=== PATIENT | female | born 1985 | race African-American/Black ===

== ENCOUNTER 2020-10-07 15:20 | Inpatient (IN) | payer OTHER ==
[~2020-10-07] VITALS: Ht 175.3 cm; Wt 65.3 kg
[2020-10-07 16:24] LABS: Albumin 4.3 g/dL (3.4-5.0); BUN/Creatinine Ratio 14.7; Basophils # (auto) 0 10 ^3/uL (0-0.2); Basophils % (auto) 0.3 % (0.0-2.0); Calcium 8.9 mg/dL (8.5-10.1); Eosinophils # (auto) 0.1 10 ^3/uL (0-0.8); Eosinophils % (auto) 0.8 % (0.0-7.0); Hematocrit 47.4 % (36.0-46.0); Hemoglobin 16.4 g/dL (12.2-16.2); Lymphocytes # (auto) 2.9 10 ^3/uL (0.4-5.4); Mean Corpuscular Hemoglobin 29.8 pg (28.0-32.0); Mean Corpuscular Hgb Conc. 34.5 g/dL (32.0-36.0); Mean Corpuscular Volume 86.5 fL (80.0-100.0); Monocytes # (auto) 1.1 10 ^3/uL (0-1.3); Monocytes % (auto) 7.1 % (0.0-12.0); Neutrophils # (auto) 11.8 10 ^3/uL (1.6-8.6); Neutrophils % (auto) 73.8 % (37.0-80.0); Nucleated Red Blood Cells % 0.1 %; Platelet Count (auto) 327 10^3/uL (140-450); Potassium 3.2 mmol/L (3.5-5.1); Red Blood Cells 5.48 10^6/uL (4.0-5.20); Red Cell Distribution Width 13.9 % (11.8-14.3)
[2020-10-07 16:27] LABS: Bilirubin, Total 2.4 mg/dL (0.2-1.0); Total Protein 8.1 g/dL (6.4-8.2)
[2020-10-07] MEDS ORDERED: SODIUM CHLORIDE 0.9% 1,000 ML IVB ONE (16:45)
[2020-10-07 16:54] LABS: Urine Bacteria MANY /hpf (None Seen); Urine Blood 2+ /uL (Negative); Urine WBC 5 /hpf (0 - 5)
[2020-10-07] MEDS ORDERED: cefTRIAXone 1GM/50ML D5W 50 ML IV ONE (17:30)
[2020-10-07] MEDS: PROMETHAZINE HCL 25 MG/ML 1ML IV PRN ×2 (17:46→21:41)
[2020-10-07 17:54] LABS: Magnesium 2.3 mg/dL (1.6-2.6)
[2020-10-07] MEDS ORDERED: MORPHINE SULF INJ 2 MG/ML SYRINGE 1ML IV ONE (20:30)
[2020-10-07] MEDS ORDERED: POTASSIUM CHL 20MEQ/100ML 100 ML IV ONE (21:30)
[2020-10-07] MEDS ORDERED: metroNIDAZOLE 500MG/100ML 100 ML IV ONE (21:30)
[2020-10-07] MEDS ORDERED: ONDANSETRON HCL 4 MG/2 ML VIAL IV PRN (21:45)
[2020-10-07] MEDS ORDERED: MORPHINE SULFATE 4 MG/ML SYR/VIAL IV PRN (21:45)
[2020-10-07] MEDS ORDERED: SOD CHL 0.9%/ KCL 20MEQ 1,000 ML IV ONE (21:45)
[2020-10-07 23:49] VITALS: BP 108/63
[2020-10-08 00:05] VITALS: BP 108/63
[2020-10-08 05:00] VITALS: BP 113/71
[2020-10-08] MEDS: metroNIDAZOLE 500MG/100ML 100 ML IV SCH ×3 (06:06→23:33)
[2020-10-08 07:24] LABS: Basophils # (auto) 0.1 10 ^3/uL (0-0.2); Basophils % (auto) 0.5 % (0.0-2.0); Eosinophils # (auto) 0.2 10 ^3/uL (0-0.8); Eosinophils % (auto) 1.4 % (0.0-7.0); Hematocrit 41.7 % (36.0-46.0); Hemoglobin 14.6 g/dL (12.2-16.2); Lymphocytes # (auto) 4.5 10 ^3/uL (0.4-5.4); Lymphocytes % (auto) 34.4 % (10.0-50.0); Mean Corpuscular Hemoglobin 30.5 pg (28.0-32.0); Mean Corpuscular Volume 87.1 fL (80.0-100.0); Monocytes % (auto) 7.9 % (0.0-12.0); Neutrophils # (auto) 7.2 10 ^3/uL (1.6-8.6); Neutrophils % (auto) 55.8 % (37.0-80.0); Nucleated Red Blood Cells % 0.1 %; Red Blood Cells 4.79 10^6/uL (4.0-5.20); Red Cell Distribution Width 13.9 % (11.8-14.3)
[2020-10-08 07:25] LABS: Platelet Count (auto) 264 10^3/uL (140-450)
[2020-10-08 07:54] LABS: Albumin 3.4 g/dL (3.4-5.0); Calcium 8.1 mg/dL (8.5-10.1); Potassium 3.4 mmol/L (3.5-5.1)
[2020-10-08 07:58] LABS: BUN/Creatinine Ratio 16.4; Bilirubin, Total 2.2 mg/dL (0.2-1.0); Total Protein 6.6 g/dL (6.4-8.2)
[2020-10-08 08:30] VITALS: BP 103/64
[2020-10-08 09:00] VITALS: BP 103/64
[2020-10-08] MEDS ORDERED: cefTRIAXone 1GM/50ML D5W 50 ML IV SCH (09:00)
[2020-10-08] MEDS ORDERED: PANTOPRAZOLE 40 MG/10 ML VIAL INJ IV SCH (10:00)
[2020-10-08 12:46] VITALS: BP 108/67
[2020-10-08] MEDS ORDERED: POTASSIUM CHL 20 Meq TABLET PO ONE (13:15)
[2020-10-08 16:51] VITALS: BP 115/63
[2020-10-09] MEDS: metroNIDAZOLE 500MG/100ML 100 ML IV SCH (06:00)
== END 2020-10-09 04:40 | disposition left against medical advice (07) | DRG 249 ==
LOC: ER 15:20 → OVERFLOW 21:35 → WEST WING 23:28
PROVIDERS: ADMIT Nurse Practitioner; ATTEND Internal Medicine
DX: A09 Infectious gastroenteritis and colitis, unspecified (principal); R65.10 Systemic inflammatory response syndrome (SIRS) of non-infectious origin without acute organ dysfunction; I31.3 Pericardial effusion (noninflammatory); Z20.822 Contact with and (suspected) exposure to COVID-19; K56.7 Ileus, unspecified; E87.6 Hypokalemia; D72.829 Elevated white blood cell count, unspecified; Z68.21 Body mass index [BMI] 21.0-21.9, adult; E87.8 Other disorders of electrolyte and fluid balance, not elsewhere classified; Z53.29 Procedure and treatment not carried out because of patient's decision for other reasons; E66.9 Obesity, unspecified; N39.0 Urinary tract infection, site not specified
CPT/HCPCS: 36415; 74176; 80053; 81001; 83690; 83735; 84702; 85025; 87086; 87088; 87186; 87426; 96365; 96366; 96367; 96368; 96375; C9113; G0378; J0696; J3480; J3490